=== PATIENT | female | born 1975 | race Caucasian/White ===

== ENCOUNTER 2018-08-25 00:59 | Emergency (ER) | payer BC, OTHER ==
[2018-08-25 01:09] VITALS: BP 113/59
[2018-08-25] MEDS ORDERED: METHYLPREDNISOLONE INJ 125 MG/2 ML SDV IM ONE (02:15)
--- NOTE | 2018-08-25 02:22 | ER Document Report ---
HPI - HPI Time Seen by Provider: 08/25/18 02:09 Pain Level: 2 Context: Patient is a 42-year-old female that comes to the emergency department for chief complaint of rash to her arms and legs, she states this developed since yesterday, she was working out in the yard pulling in the weeds. She thinks she was exposed to poison blas. The rash is very itchy and she cannot rest tonight. She denies history of the same. She denies any other complaints. Only past medical history reported is hypothyroidism. - REPRODUCTIVE Reproductive: DENIES: : Past Medical History - General Information source: Patient - Social History Smoking Status: Never Smoker Frequency of alcohol use: Social Drug Abuse: None Lives with: Family Family History: Reviewed & Not Pertinent Patient has suicidal ideation: No Patient has homicidal ideation: No - Past Medical History Cardiac Medical History: Denies: Hx Coronary Artery Disease, Hx Heart Attack, Hx Hypertension Pulmonary Medical History: Denies: Hx Asthma, Hx Bronchitis, Hx COPD, Hx Pneumonia Neurological Medical History: Denies: Hx Cerebrovascular Accident, Hx Seizures Endocrine Medical History: Reports: Hx Hypothyroidism Renal/ Medical History: Denies: Hx Peritoneal Dialysis GI Medical History: Reports: Hx Gastroesophageal Reflux Disease Musculoskeletal Medical History: Denies Hx Arthritis Past Surgical History: Reports: Hx Cholecystectomy. Denies: Hx Pacemaker - Immunizations Immunizations up to date: Yes Hx Diphtheria, Pertussis, Tetanus Vaccination: Yes Vertical Provider Document - CONSTITUTIONAL General Appearance: WD/WN, No Apparent Distress - INFECTION CONTROL TRAVEL OUTSIDE OF THE [place] IN LAST 30 DAYS: No - HEENT HEENT: Atraumatic, Normal ENT Exam - Normal tongue, normal oropharyngeal exam, Normocephalic - NECK Neck: Normal Inspection - RESPIRATORY Respiratory: Breath Sounds Normal, No Respiratory Distress - CARDIOVASCULAR Cardiovascular: Regular Rate, Regular Rhythm - GI/ABDOMEN Gastrointestinal: Abdomen Soft, Abdomen Non-Tender - BACK Back: Normal Inspection - MUSCULOSKELETAL/EXTREMETIES Musculoskeletal/Extremeties: MAEW, FROM, Non-Tender - NEURO Level of Consciousness: Awake, Alert, Appropriate - DERM Integumentary: Rash - Dry, irritated, slightly excoriated areas of erythema over the forearms bilaterally and over the distal anterior aspect of the tibias. No vesicles, pustules, induration, fluctuance, or other concerning a normality noted. Course - Re-evaluation Re-evalutation: Patient with itchy rashes and location of contact, appears to be dermatitis, most likely from poison blas. Patient will be treated for this, discussed recommendations, precautions, return precautions. Patient states satisfaction and agreement with plan. - Vital Signs Vital signs: Temp Pulse Resp BP Pulse Ox 98.1 F 70 16 113/59 L 70 L 08/25/18 01:08 08/25/18 01:08 08/25/18 01:08 08/25/18 01:08 08/25/18 01:08 Discharge - Discharge Clinical Impression: Atopic dermatitis Qualifiers: Atopic dermatitis type: atopic neurodermatitis Qualified Code(s): L20.81 - Atopic neurodermatitis Condition: Stable Disposition: HOME, SELF-CARE Additional Instructions: Your evaluation is consistent with a dermatitis caused by poison blas. Recommendation is to take the prednisone as prescribed, take cetirizine during the day for itching, take Benadryl at night if needed. You may need moisturizers in the nose because of the antihistamine, also watch your diet while taking the prednisone. Follow-up with primary care. Return if you worsen including swelling of the face/throat/mouth, developing redness/swelling/pain over the arms, fever, or any other concerning symptoms. Prescriptions: Cetirizine HCl [All Day Allergy] 10 mg PO DAILY #30 capsule Prednisone [Deltasone 20 mg Tablet] 20 mg PO DAILY 21 Days #42 tablet Referrals: GERARDO CHANEL MD [ACTIVE STAFF] - Follow up as needed
== END 2018-08-25 02:52 | disposition home or self-care (01) ==
LOC: ER 00:59
DX: L20.81 Atopic neurodermatitis (principal)
CPT/HCPCS: 99282; 96372; J2930